=== PATIENT | male | born 1985 | race Caucasian/White ===

== ENCOUNTER 2020-03-19 18:07 | Emergency (ER) | payer BC ==
[2020-03-19] MEDS ORDERED: Tetracaine HCl/PF 0.5% 4 ML Bottle EYERT ONE (18:18)
[2020-03-19] MEDS ORDERED: Erythromycin Base 0.5% Ophth Oint 1 GM Tube EYERT ONE (18:58)
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
== END 2020-03-19 19:46 | disposition home or self-care (01) ==
LOC: MW.ED 18:07
DX: T15.91XA Foreign body on external eye, part unspecified, right eye, initial encounter (principal); Z88.5 Allergy status to narcotic agent; Z79.899 Other long term (current) drug therapy
CPT/HCPCS: 99283; A9270

== ENCOUNTER 2024-01-31 08:01 | Day surgery (SDC) | payer BC ==
[~2024-01-31 08:01] MED LIST: Sodium Chloride 0.9% 10 ML Syringe FLUSH PRN; Sodium Chloride 0.9% 2.5 ML Syringe FLUSH PRN; Sodium Chloride 0.9% 20 ML SDV IV PRN; ceFAZolin 2 GM in Sodium Chloride 0.9% 50 ML IV ONE
[2024-01-31] MEDS: Lactated Ringers 1,000 ML IV SCH (08:36)
[2024-01-31] MEDS ORDERED: Bupivacaine 0.5% 30 ML SDV ONE (08:54)
[2024-01-31] MEDS ORDERED: Ondansetron 4 MG/2 ML SDV IVPUSH PRN (09:18)
[2024-01-31] MEDS ORDERED: Morphine 2 MG/ML SYRINGE IVPUSH PRN (09:18)
[2024-01-31] MEDS ORDERED: Albuterol 0.083% 2.5 MG/3 ML Neb Soln NEB PRN (09:18)
[2024-01-31] MEDS ORDERED: Naloxone 0.4 MG/ML SDV IVPUSH PRN (09:18)
[2024-01-31] MEDS ORDERED: droPERidol 5 MG/2 ML SDV IVPUSH PRN (09:18)
[2024-01-31] MEDS ORDERED: fentaNYL 50 MCG/ML SDV IVPUSH PRN (09:18)
[2024-01-31] MEDS ORDERED: Metoclopramide 10 MG/2 ML SDV IVPUSH PRN (09:18)
[2024-01-31] MEDS ORDERED: fentaNYL 100 MCG/2 ML SDV ONE (09:27)
[2024-01-31] MEDS ORDERED: Propofol 200 MG/20 ML SDV ONE (09:27)
[2024-01-31] MEDS ORDERED: Rocuronium Bromide 50 MG/5 ML Syringe ONE (09:27)
[2024-01-31] MEDS ORDERED: Ketamine HCL/NACL, ISO-OSM 50 MG/5 ML Syringe ONE (09:27)
[2024-01-31] MEDS ORDERED: dexmedeTOMIDine HCl 200 MCG/2 ML SDV ONE (09:27)
[2024-01-31] MEDS ORDERED: Bupivacaine 0.25% 30 ML SDV ONE (09:41)
[2024-01-31] MEDS ORDERED: Ondansetron 4 MG/2 ML SDV ONE (10:12)
[2024-01-31] MEDS ORDERED: Dexamethasone 4 MG/ML 5 ML MDV ONE (10:12)
[2024-01-31] MEDS ORDERED: metroNIDAZOLE/Normal Saline 100 ML ONE (10:22)
[2024-01-31] MEDS ORDERED: Ketorolac 30 MG/ML SDV ONE (10:59)
[2024-01-31] MEDS ORDERED: Sugammadex Sodium 200 MG/2 ML VIAL IV ONE (10:59)
[2024-01-31] MEDS: HYDROmorphone 1 MG/ML Syringe IVPUSH PRN (11:57)
[2024-01-31] MEDS: Ondansetron 4 MG Tab.DIS PO ONE (13:15)
== END 2024-01-31 13:20 | disposition home or self-care (01) ==
LOC: MW.SDS 08:01
PROVIDERS: ATTEND Surgery
DX: K82.8 Other specified diseases of gallbladder (principal); J45.20 Mild intermittent asthma, uncomplicated; K21.9 Gastro-esophageal reflux disease without esophagitis; E78.00 Pure hypercholesterolemia, unspecified; Z88.5 Allergy status to narcotic agent; Z79.899 Other long term (current) drug therapy
CPT/HCPCS: 47562; 64488; A9270; J0131; J0665; J1100; J1170; J1836; J1885; J2405; J2704; J3010; J3490; J7120; 00790

== ENCOUNTER 2024-11-09 10:14 | Day surgery (SDC) | payer BC ==
[~2024-11-09 10:14] MED LIST changes: -ceFAZolin 2 GM in Sodium Chloride 0.9% 50 ML IV ONE
[2024-11-09] MEDS: Lactated Ringers 1,000 ML IV SCH (10:42)
[2024-11-09] MEDS ORDERED: propofoL 500 MG/50 ML 50 ML ONE (10:59)
== END 2024-11-09 12:33 | disposition home or self-care (01) ==
LOC: MW.SDS 10:14
PROVIDERS: ATTEND Surgery
DX: Z12.11 Encounter for screening for malignant neoplasm of colon (principal); Z80.0 Family history of malignant neoplasm of digestive organs; J45.909 Unspecified asthma, uncomplicated; E78.00 Pure hypercholesterolemia, unspecified; K21.9 Gastro-esophageal reflux disease without esophagitis
CPT/HCPCS: 45378; J2704; J7120; 00811